=== PATIENT | male | born 2005 | race Asian ===

== ENCOUNTER 2025-06-04 06:28 | Outpatient (CLI) | payer BC ==
[2025-06-04] MEDS ORDERED: iohexol 300 MG/1 ML 50ml polymer ONE (06:35)
[2025-06-04] MEDS ORDERED: LIDOcaine 1%/PF 5ML 10 MG/ML VIAL ONE (06:35)
[2025-06-04] MEDS ORDERED: LIDOcaine 1% 30ml preserv. free vial ONE (06:35)
[2025-06-04] MEDS ORDERED: GADOTERATE MEGLUMINE 7.5 MMOL/15 ML VIAL IV ONE (06:36)
--- NOTE | 2025-06-04 08:52 | RADIOLOGY REPORT ---
ANGIO ARTHROGRAM (A) Date: 06/04/2025 07:29 AM Clinical History: PAIN IN LEFT HAND Comparison: None Procedure: Verbal and written informed consent were obtained from the patient for the procedure of LEFT WRIST JOINT fluoroscopically guided arthrogram, after the procedure, risks, and benefits of the procedure were explained to the patient. Risks include bleeding, infection, reaction to injected medications, and damage to surrounding anatomic structures. The patient's questions were answered. The patient's most recent medical history was reviewed. A time out was performed to verify the patient's name, date of , and correct location of the procedure, prior to initiation of the procedure. The patient was placed supine on the fluoroscopic table and the area overlying the LEFT WRIST JOINT was prepped and draped in the usual sterile fashion. The patient tolerated the procedure well. There were no immediate complications. Home-care instructions were reviewed with the patient prior to the patient's discharge from the fluoroscopy suite. The patient verbally affirmed understanding of these instructions. Impression: Technically successful fluoroscopically guided LEFT WRIST JOINT arthrogram. The patient was transported to MRI for further imaging at the completion of the procedure. Procedure by Dr. Wallace
--- NOTE | 2025-06-04 10:37 | RADIOLOGY REPORT ---
CLINICAL INDICATION: PAIN IN LEFT HAND TECHNIQUE: Multiplanar, multi-sequence MRI of the left wrist was performed with intra-articular contrast. Contrast: None COMPARISON: None INTERPRETATION: Bones: There is no fracture. There is no marrow replacing lesion. Joints: There is good intra-articular distention of the radiocarpal joint.The joint spaces are maintained. Alignment is preserved. No significant joint effusion or synovitis. Ligaments: The scapholunate and lunotriquetral ligaments are intact. Extrinsic volar ligaments are intact. TFCC: Intact. Tendons: The dorsal extensor tendons are intact. The flexor tendons are intact. No tenosynovitis. Carpal tunnel: Flexor tendons within the carpal tunnel are intact. Median nerve intact. Neurovascular: Visualized ulna and radial nerves are intact. Muscles: Regional muscles are preserved in bulk and signal characteristics. Soft tissues: Unremarkable. IMPRESSION: 1. No evidence of bone or soft tissue derangement in the left wrist.
== END 2025-06-04 23:59 | disposition home or self-care (01) ==
LOC: RAD 06:28
PROVIDERS: ATTEND Family Medicine Sports Medicine
DX: S63.592A Other specified sprain of left wrist, initial encounter (principal); M79.642 Pain in left hand; M77.9 Enthesopathy, unspecified; G56.22 Lesion of ulnar nerve, left upper limb; X58.XXXA Exposure to other specified factors, initial encounter; Y93.89 Activity, other specified; Y92.89 Other specified places as the place of occurrence of the external cause
CPT/HCPCS: 25246; 73222; 77002; A9575; J2003; J3490; Q9967